=== PATIENT | male | born 1975 | race Caucasian/White ===

== ENCOUNTER 2022-04-28 06:51 | Day surgery (SDC) | payer OTHER ==
[~2022-04-28 06:51] MED LIST: Dextrose 5%-0.45% NaCl 1,000 ML IV SCH; Midazolam 1 MG/ML 2 ML SDV ONE; Sodium Chloride 0.9% 10 ML Syringe FLUSH PRN; Sodium Chloride 0.9% 10 ML Syringe FLUSH SCH; fentaNYL 100 MCG/2 ML SDV ONE
[2022-04-28] MEDS ORDERED: Midazolam 1 MG/ML 2 ML SDV IV ONE ×6 (06:52→08:19)
[2022-04-28] MEDS ORDERED: fentaNYL 100 MCG/2 ML SDV IV ONE ×4 (06:52→08:21)
== END 2022-04-28 09:45 | disposition home or self-care (01) ==
LOC: DL.ENDO 06:51
PROVIDERS: ATTEND Internal Medicine Gastroenterology
DX: K62.5 Hemorrhage of anus and rectum (principal); K64.8 Other hemorrhoids; E66.09 Other obesity due to excess calories; Z88.0 Allergy status to penicillin; Z91.013 Allergy to seafood; Z98.890 Other specified postprocedural states; Z68.32 Body mass index [BMI] 32.0-32.9, adult
CPT/HCPCS: J2250; J3010; J7042

== ENCOUNTER 2023-09-10 11:46 | Emergency (ER) | payer BC, OTHER ==
[2023-09-10 13:01] LABS: A/G RATIO 1.2; ALBUMIN 4.5 g/dL (3.4-5.0); ANION GAP 11.2 mEq/L (7-13); BUN/CREATININE RATIO 10.5 (No establ ref range); CALCIUM 9.7 mg/dL (8.5-10.1); CREATININE 1.05 mg/dL (0.70-1.30); EST CRCL DRUG DOSING (CG) 96.49 mL/min; MAGNESIUM 2.1 mg/dL (1.8-2.4); POTASSIUM,K 4.2 mmol/L (3.5-5.1); PROTEIN TOTAL,TP 8.1 g/dL (6.4-8.2)
[2023-09-10 13:02] LABS: PROTHROMBIN TIME 10.7 SEC (9.0-12.0)
[2023-09-10] MEDS: Iopamidol 755 Mg/ML 100 ML Bottle IVPUSH ONE (13:09)
== END 2023-09-10 14:39 | disposition home or self-care (01) ==
LOC: DL.ED 11:46
DX: G43.909 Migraine, unspecified, not intractable, without status migrainosus (principal); Z79.899 Other long term (current) drug therapy; Z88.0 Allergy status to penicillin; Z91.013 Allergy to seafood
CPT/HCPCS: 36415; 70450; 70496; 70498; 80053; 83735; 84484; 85025; 85610; 93005; 99284; Q9967